=== PATIENT | male | born 1995 | race Caucasian/White ===

== ENCOUNTER 2017-04-18 10:41 | Emergency (ER) | payer BC ==
[~2017-04-18] VITALS: Ht 152.4 cm; Wt 90.0 kg
[~2017-04-18 10:41] MED LIST: PANT40TA3 PO
[2017-04-18 10:45] VITALS: Ht 152.4 cm; Wt 90.0 kg
[2017-04-18] MEDS ORDERED: SULF1TAB31 PO (11:02)
[2017-04-18] MEDS ORDERED: HYDR-906 PO (11:02)
[2017-04-18] MEDS ORDERED: CEPH-443 PO (11:02)
[2017-04-18] MEDS ORDERED: IBUP-1542 PO (11:03)
--- NOTE | 2017-04-18 11:06 | ERD ---
ER Documentation Chief Complaint Date/Time DATE: 04/18/17 TIME: 11:05 Chief Complaint abcess lower baCK HPI Patient is a 22-year-old male who presents to the ED for concerns of an abscess to his lower back. Patient states initially he thought he was just having some tailbone pain however he soon realized that he had redness and swelling the affected area.. Patient states his symptoms started 1 week ago. States he has pain when sitting down. Denies using any warm compresses. Patient denies any saddle anesthesia, urine incontinence or stool incontinence. Patient denies any fevers or chills. ROS All systems reviewed and are negative except as per history of present illness. Medications Home Meds Active Scripts Ibuprofen* (Motrin*) 600 Mg Tab, 600 MG PO Q6, #30 TAB Prov:MAXIME DISLA PA-C 04/18/17 Hydrocodone/Acetaminophen ([place] 5-325 Tablet) 1 Each Tablet, 1 TAB PO Q6H Y for PAIN, #10 TAB Prov:MAXIME DISLA PA-C 04/18/17 Cephalexin* (Keflex*) 500 Mg Capsule, 500 MG PO TID for 10 Days, CAP Prov:MAXIME DISLA PA-C 04/18/17 Sulfamethoxazole/Trimethoprim* (Bactrim Ds* Tablet) 1 Each Tablet, 1 TAB PO BID , #20 TAB Prov:MAXIME DISLA PA-C 04/18/17 Pantoprazole* (Protonix*) 40 Mg Tablet.dr, 40 MG PO DAILY, #30 TAB Prov:KRYSTYNA HILL MD 06/20/16 Allergies Allergies: Coded Allergies: No Known Allergy (Unverified , 08/10/11) PMhx/Soc Medical and Surgical Hx: pt denies Medical Hx, pt denies Surgical Hx History of Surgery: Yes (HERNIA) Anesthesia Reaction: No Hx Neurological Disorder: No Hx Respiratory Disorders: No Hx Cardiac Disorders: No Hx Psychiatric Problems: No Hx Miscellaneous Medical Probl: No Hx Alcohol Use: No Hx Substance Use: No Hx Tobacco Use: No Smoking Status: Never smoker Physical Exam Vitals Vital Signs Date Time Temp Pulse Resp B/P Pulse Ox O2 Delivery O2 Flow Rate FiO2 04/18/17 10:45 98.1 99 18 126/79 99 Physical Exam GENERAL: Well-developed, well-nourished male. Appears in no acute distress. HEAD: Normocephalic, atraumatic. EYES: Pupils are equally reactive bilaterally. EOMs grossly intact. No conjunctival erythema. ENT: Moist mucous membranes. No uvula deviation. No kissing tonsils. NECK: Supple. No meningismus. Normal range of motion of the neck. LUNG: Clear to auscultation bilaterally. No rhonchi, wheezing, rales or coarse breath sounds. HEART: Regular rate and rhythm. No murmurs, rubs or gallops. BACK: No midline tenderness. EXTREMITIES: Equal pulses bilaterally. No peripheral clubbing, cyanosis or edema. No unilateral leg swelling. NEUROLOGIC: Alert and oriented. Moving all four extremities without any difficulty. Normal speech. Steady gait. SKIN: 2 cm Centimeter abscess palpable in the upper gluteal cleft. Area is indurated, erythematous and tender to palpation. No fluctuance noted. Results 24 hrs Current Medications Medications (Trade) Dose Ordered Sig/Diego Route PRN Reason Start Time Stop Time Status Last Admin Dose Admin Acetaminophen/ Hydrocodone Bitart ([place] (5/325)) 1 tab ONCE ONCE PO 04/18/17 11:30 04/18/17 11:31 DC 04/18/17 11:09 Procedures/MDM MEDICAL DECISION MAKING: This is a 22-year-old male who presents for concerns of an abscess to his tailbone.. Vital signs were reviewed. Patient was afebrile. Examination revealed findings consistent with a pilonidal cyst. Area was erythematous and tender to palpation. No fluctuance was noted. I advised the patient to return in 2 days for an incision and drainage. Patient was advised on warm compresses and Epson salt baths. Patient understands and agrees with this plan. Patient will be discharged home with a prescription for Keflex and Bactrim. At this time, patient presentation is most consistent with pilonidal abscess. Low suspicion for perirectal abscess, fistula, deep space infection, sacral fracture. PRESCRIPTIONS: Keflex, Bactrim, ibuprofen, [place] DISCHARGE: At this time, the patient is stable for discharge and outpatient management. The patient has been advised to return to the ER in 2 days for a wound check and possible incision and drainage at that time.. I have instructed the patient to promptly return to the ER for any new or worsening symptoms including increasing pain, fever, warmth, redness or swelling. The patient and/or family expressed understanding of and agreement with this plan. All questions were answered. Home care instructions were provided. Disclaimer: Inadvertent spelling and grammatical errors are likely due to EHR/ dictation software use and do not reflect on the overall quality of patient care. Also, please note that the electronic time recorded on this note does not necessarily reflect the actual time of the patient encounter. Departure Diagnosis: Primary Impression: Pilonidal abscess Condition: Stable Patient Instructions: Pilonidal Cyst Referrals: [facility] YOU HAVE RECEIVED A MEDICAL SCREENING EXAM AND THE RESULTS INDICATE THAT YOU DO NOT HAVE A CONDITION THAT REQUIRES URGENT TREATMENT IN THE EMERGENCY DEPARTMENT. FURTHER EVALUATION AND TREATMENT OF YOUR CONDITION CAN WAIT UNTIL YOU ARE SEEN IN YOUR DOCTORS OFFICE WITHIN THE NEXT 1-2 DAYS. IT IS YOUR RESPONSIBILITY TO MAKE AN APPOINTMENT FOR FOLOW-UP CARE. IF YOU HAVE A PRIMARY DOCTOR --you should call your primary doctor and schedule an appointment IF YOU DO NOT HAVE A PRIMARY DOCTOR YOU CAN CALL OUR PHYSICIAN REFERRAL HOTLINE AT IF YOU CAN NOT AFFORD TO SEE A PHYSICIAN YOU CAN CHOSE FROM THE FOLLOWING [facility] [address] [facility]. [facility] [address] [facility] [facility] [address] [facility] [facility] [address] [facility] [facility] [address] [facility]. [facility]. [address] [facility]. [facility] YOU HAVE RECEIVED A MEDICAL SCREENING EXAM AND THE RESULTS INDICATE THAT YOU DO NOT HAVE A CONDITION THAT REQUIRES URGENT TREATMENT IN THE EMERGENCY DEPARTMENT. FURTHER EVALUATION AND TREATMENT OF YOUR CONDITION CAN WAIT UNTIL YOU ARE SEEN IN YOUR DOCTORS OFFICE WITHIN THE NEXT 1-2 DAYS. IT IS YOUR RESPONSIBILITY TO MAKE AN APPOINTMENT FOR FOLOW-UP CARE. IF YOU HAVE A PRIMARY DOCTOR --you should call your primary doctor and schedule and appointment IF YOU DO NOT HAVE A PRIMARY DOCTOR YOU CAN CALL OUR PHYSICIAN REFERRAL HOTLINE AT . IF YOU CAN NOT AFFORD TO SEE A PHYSICIAN YOU CAN CHOSE FROM THE FOLLOWING [facility] INSTITUTIONS: [facility] [address] [place] [address] [facility] [address] [place] [address] [facility] [address] [place] [address] Additional Instructions: Return in 2 days for incision and drainage. Use Epson salt for warm soaks 3-4 times per day. Start antibiotics today. Call your primary care doctor TOMORROW for an appointment during the next 1-2 days.See the doctor sooner or return here if your condition worsens before your appointment time. MAXIME DISLA PA-C Apr 18, 2017 11:06
[2017-04-18] MEDS ORDERED: HYDROCODONE/APAP (5/325) TAB PO ONE (11:30)
== END 2017-04-18 11:21 | disposition home or self-care (01) ==
LOC: FTE 10:41
DX: L05.01 Pilonidal cyst with abscess (principal)
CPT/HCPCS: 99284

== ENCOUNTER 2019-02-20 19:00 | Emergency (ER) | payer BC ==
[~2019-02-20] VITALS: Ht 167.6 cm; Wt 106.5 kg
[~2019-02-20 19:00] MED LIST changes: +CEPH-443 PO; +HYDR-4011 PO; +IBUP-1542 PO; +IBUP800T48 PO; +SULF1TAB31 PO
[2019-02-20 19:04] VITALS: Ht 167.6 cm; Wt 106.5 kg
[2019-02-20] MEDS ORDERED: IBUPROFEN 600 MG TAB PO ONE (20:30)
[2019-02-20] MEDS ORDERED: LIDOCAINE 1% (MDV) 20 ML INJ SC ONE (21:00)
[2019-02-20 21:38] VITALS: BP 144/87; PULSE 82; RESP 18
== END 2019-02-20 21:39 | disposition home or self-care (01) ==
LOC: FTE 19:00
DX: L05.01 Pilonidal cyst with abscess (principal)